=== PATIENT | male | born 1995 | race African-American/Black ===

== ENCOUNTER 2017-06-24 20:29 | Emergency (ER) | payer OTHER ==
[~2017-06-24] VITALS: Ht 177.8 cm; Wt 65.8 kg
[2017-06-24] MEDS ORDERED: MOBIC15 MG PO (21:21)
[2017-06-24 21:56] VITALS: BP 110/70
== END 2017-06-24 21:56 | disposition home or self-care (01) ==
LOC: ER 20:29
DX: S50.01XA Contusion of right elbow, initial encounter (principal); V89.2XXA Person injured in unspecified motor-vehicle accident, traffic, initial encounter; Y93.89 Activity, other specified; Y92.89 Other specified places as the place of occurrence of the external cause; Y99.8 Other external cause status